=== PATIENT | male | born 1990 | race African-American/Black ===

== ENCOUNTER 2016-06-21 19:49 | Emergency (ER) | payer OTHER ==
[2016-06-21 19:54] VITALS: BP 141/83
[2016-06-21] MEDS ORDERED: Ketorolac INJ* 60 MG/2 ML VIAL IM ONE (20:47)
[2016-06-21] MEDS ORDERED: Clindamycin CAP* 150 MG PO ONE ×2 (20:47→21:35)
[2016-06-21] MEDS ORDERED: traMADol TAB* 50 MG PO ONE (21:49)
[2016-06-21] MEDS ORDERED: traMADol TAB* 50 MG ONE (21:51)
--- NOTE | 2016-09-04 08:55 | ED ---
Throat Pain/Nasal Congestion - HPI Summary HPI Summary: Patiient presenst with mild swelling to the right side of his face. He has multiple cavities but is unable to determine if it is top or bottom tooth causing his pain and swelling. He denies fever, chills, drainage or difficulty breathing. He is able to eat and drink with mild discomfort. - History of Current Complaint Chief Complaint: EDDentalPain Time Seen by Provider: 06/21/16 20:19 Hx Obtained From: Patient Onset/Duration: Gradual Onset Severity: Moderate Associated Signs And Symptoms: Positive: Negative Cough: None - Allergies/Home Medications Allergies/Adverse Reactions: Allergies Allergy/AdvReac Type Severity Reaction Status Date / Time No Known Allergies Allergy Verified 09/06/15 15:02 PMH/Surg Hx/FS Hx/Imm Hx Respiratory History: Reports: Hx Asthma Infectious Disease History: No Infectious Disease History: Denies: Traveled Outside the [place] in Last 30 Days - Family History Known Family History: Positive: None - Social History Occupation: Employed Full-time Lives: With Family Alcohol Use: Occasionally Substance Use Type: Reports: None Substance Use Comment - Amount & Last Used: patient has since quit Hx Tobacco Use: Yes - cigarettes Smoking Status (MU): Light Every Day Tobacco Smoker Type: Cigarettes Amount Used/How Often: 1/2 ppd Length of Time of Smoking/Using Tobacco: a few months Have You Smoked in the Last Year: Yes Cessation Counseling: Patient Advised to Stop Review of Systems Negative: Fever, Chills Positive: Dental Pain. Negative: Sore Throat, Ear Ache All Other Systems Reviewed And Are Negative: Yes Physical Exam Triage Information Reviewed: Yes Vital Signs On Initial Exam: Initial Vitals Temp Pulse Resp BP Pulse Ox 98.6 F 85 14 141/83 100 06/21/16 19:50 06/21/16 19:50 06/21/16 19:50 06/21/16 19:50 06/21/16 19:50 Vital Signs Reviewed: Yes Appearance: Positive: Well-Appearing, No Pain Distress, Well-Nourished Skin: Positive: Warm, Skin Color Reflects Adequate Perfusion, Dry, Soft Head/Face: Positive: Normal Head/Face Inspection - mild right sided facial swelling Eyes: Positive: EOMI, LA, Conjunctiva Clear ENT: Positive: Hearing grossly normal, Pharynx normal, TMs normal Dental: Positive: Gross Decay/Caries @ - right lower molar Neck: Positive: Supple, Nontender, No Lymphadenopathy Respiratory/Lung Sounds: Positive: Breath Sounds Present Cardiovascular: Positive: RRR Neurological: Positive: Sensory/Motor Intact, Alert, Oriented to Person Place, Time, [place] Bundle Intact Distally, Normal Gait Psychiatric: Positive: Affect/Mood Appropriate AVPU Assessment: Alert Diagnostics - Vital Signs Vital Signs Temp Pulse Resp BP Pulse Ox 06/21/16 22:00 98.7 F 16 06/21/16 19:50 98.6 F 85 14 141/83 100 - Laboratory Lab Statement: Any lab studies that have been ordered have been reviewed, and results considered in the medical decision making process. EENT Course/Dx - Differential Diagnoses Differential Diagnoses: Dental Abscess, Dental Caries, Fractured Tooth, Frederic' s Angina, Mandibular/Maxillary Trauma, Mastoiditis, Odontogenic Pain, Pain of Unknown Etiology, Periodontic Abscess, Periodontic Disease - Diagnoses Provider Diagnoses: Dental infection Discharge - Discharge Plan Condition: Stable Disposition: HOME Prescriptions: Clindamycin Cap(NF) [Cleocin 300 mg Cap(NF)] 300 mg PO Q6H #39 cap traMADol TAB* [Ultram*] 50 mg PO Q6HR PRN #12 tab MDD 4 PRN Reason: Pain Patient Education Materials: Toothache (ED) Forms: *Work Release Referrals: Lisy Grossman MD [Primary Care Provider] - Additional Instructions: Please take the antibiotics as prescribed until they are completely gone. Begin using ibuprofen 600mg three times daily with meals beginning tomorrow evening for the next 3-5 days to decrease swelling and pain. Use the pain medication as needed for uncontrolled pain. Call your dentist tomorrow for an appointment within 1-3 days. Return to the emergency department if symptoms worsen.
== END 2016-06-21 22:00 | disposition home or self-care (01) ==
LOC: ED 19:49
DX: K08.89 Other specified disorders of teeth and supporting structures (principal); K04.7 Periapical abscess without sinus
CPT/HCPCS: 96374; 99282; A9270-GY; J1885

== ENCOUNTER 2017-02-26 12:31 | Emergency (ER) | payer OTHER ==
[2017-02-26 12:49] VITALS: BP 130/74
--- NOTE | 2017-02-26 13:12 | UC ---
Complaint Male HPI - HPI Summary HPI Summary: 26 yo male with urethral d/c x days had oral sex preformed on him weeks ago no hx STD has had trouble with ED x months trouble getting and maintaining an erection has start of a workup then his PMD retired - History of Current Complaint Chief Complaint: UCGU Stated Complaint: PRIVATE ISSUE Time Seen by Provider: 02/26/17 12:53 Hx Obtained From: Patient Onset/Duration: Gradual Onset, Lasting Hours Timing: Constant Severity Initially: Mild Severity Currently: Mild Pain Intensity: 1 Pain Scale Used: 0-10 Numeric Location: Penis Aggravating Factor(s): Nothing Associated Signs And Symptoms: Positive: Dysuria, Penile Discharge - Allergies/Home Medications Allergies/Adverse Reactions: Allergies Allergy/AdvReac Type Severity Reaction Status Date / Time No Known Allergies Allergy Verified 02/26/17 12:49 Home Medications: Home Medications NK [No Home Medications Reported] 02/26/17 [History Confirmed 02/26/17] PMH/Surg Hx/FS Hx/Imm Hx Previously Healthy: Yes - Surgical History Surgical History: None - Family History Known Family History: Positive: Hypertension - Social History Alcohol Use: Weekly Substance Use Type: Marijuana Substance Use Comment - Amount & Last Used: patient has since quit Smoking Status (MU): Current Some Day Smoker Type: Cigarettes Amount Used/How Often: 1 pack /week Length of Time of Smoking/Using Tobacco: a few months Have You Smoked in the Last Year: Yes Household Exposure Type: Cigarettes - Immunization History Most Recent Influenza Vaccination: NOT UTD Review of Systems Constitutional: Negative Skin: Negative Eyes: Negative ENT: Negative Respiratory: Negative Cardiovascular: Negative Gastrointestinal: Negative Genitourinary: Urgency, Vaginal/Penile Discharge Motor: Negative Neurovascular: Negative Musculoskeletal: Negative Neurological: Negative Psychological: Negative Is Patient Immunocompromised?: No All Other Systems Reviewed And Are Negative: Yes Physical Exam Triage Information Reviewed: Yes Appearance: Well-Appearing, No Pain Distress, Well-Nourished Vital Signs: Initial Vital Signs Temp 99.2 F 02/26/17 12:42 Pulse 93 02/26/17 12:42 Resp 16 02/26/17 12:42 BP 130/74 02/26/17 12:42 Pulse Ox 100 02/26/17 12:42 Vital Signs Reviewed: Yes ENT: Positive: Hearing grossly normal. Negative: TMs normal, TM bulging Neck: Positive: Supple, Nontender Respiratory: Positive: Lungs clear, Normal breath sounds, No respiratory distress Cardiovascular: Positive: RRR, No Murmur Abdomen Description: Positive: Nontender, Other: - able to milk d/c from urethra /no penile lesions/testicle non tender Musculoskeletal: Positive: ROM Intact Complaint Male Course/Dx - Differential Dx/Diagnosis Provider Diagnoses: urethritis. ED Discharge - Discharge Plan Condition: Stable Disposition: HOME Patient Education Materials: Nonspecific Urethritis in Men (ED) Referrals: Bart Ferrell MD [Medical Doctor] - 2 Weeks (or his partner Dr Duran Ask for next available appt) Additional Instructions: tests pending you are young to have ED and I suggest you see a urologist to have this evaluated
[2017-02-26] MEDS ORDERED: Azithromycin TAB* 250 MG PO ONE (13:17)
[2017-02-26] MEDS ORDERED: Lidocaine 1% MPF* 2 ML VIAL INJ ONE (13:18)
[2017-02-26] MEDS ORDERED: cefTRIAXone VIAL(*) 250 MG VIAL IM ONE (13:18)
[2017-02-26] MEDS ORDERED: Azithromycin TAB* 250 MG ONE (13:36)
--- NOTE | 2017-03-02 14:14 | UC ---
- Progress Note Progress Note: please contact pt with results let him know he was treated let him know that the health dept will contact him
== END 2017-02-26 13:54 | disposition home or self-care (01) ==
LOC: UCEAST 12:31
DX: N34.2 Other urethritis (principal); F17.210 Nicotine dependence, cigarettes, uncomplicated
CPT/HCPCS: 87491; 87591; 96372; 99212; A9270-GY; G0463; J0696